=== PATIENT | female | born 1965 | race Caucasian/White ===

== ENCOUNTER 2017-07-06 23:20 | Observation (INO) ==
[2017-07-07] MEDS ORDERED: LACTATED RINGERS 1,000 ML IV STA (00:07)
[2017-07-07] MEDS ORDERED: fentaNYL 100 MCG/2 ML VIAL IV STA (00:07)
[2017-07-07] MEDS ORDERED: DIPHTHERIA/TETANUS ADULT VACCINE 0.5 ML VIAL IM ONE (00:07)
[2017-07-07 00:30] LABS: INR 0.9; Partial Thromboplastin Time 25.7 SECS (0-40)
[2017-07-07 00:43] LABS: Alanine Aminotransferase 39 U/L (13-56); Albumin 3.2 G/DL (3.4-5.0); Alkaline Phosphatase 114 U/L (45-117); Aspartate Amino Transferase 86 U/L (0-37); Bilirubin,Total < 0.39 MG/DL (0.2-1.0); Blood Urea Nitrogen 23 MG/DL (7-18); Calcium 8.9 MG/DL (8.5-10.1); Glucose 217 MG/DL (74-106); Lactic Acid 1.9 MMOL/L (0.4-2.0); Osmolality,Calculated 285.7 MOS/KG (273-304); Sodium 138 MMOL/L (136-145); Total Protein 7.2 G/DL (6.4-8.3)
[2017-07-07 00:45] LABS: Basophils # 0.1 10*3/uL (0.0-0.2); Basophils % 0.2 % (0.0-0.8); Eosinophils % 0.1 % (0.00-10.9); Hematocrit 40.8 VOL% (35.7-47.0); Hemoglobin 13.4 GM/DL (12.0-16.0); Immature Granulocytes % 1.1 %; Immature Granulocytes Absolute 0.26 #; Lymphocytes # 1.5 10*3/uL (1.4-4.0); Lymphocytes % 6.1 % (21.3-54.2); Mean Corpuscular HGB Conc 32.8 GM/DL (32-36); Mean Corpuscular Hemoglobin 31 PG (27-34); Mean Corpuscular Volume 93.8 FL (87-102); Mean Platelet Volume 10.6 FL (9.6-12.0); Monocytes # 0.8 10*3/uL (0.11-0.8); Monocytes % 3.4 % (1.7-12.7); Neutrophils # 21.5 10*3/uL (1.4-7.4); Neutrophils % 89.1 % (38.7-73.9); Platelet Count 356 T/CUMM (130-400); Red Blood Count 4.35 MC/CUMM (3.8-5.5); Red Cell Distribution Width 13.6 % (9.3-17.3); White Blood Count 24.1 T/CUMM (4-12)
[2017-07-07 01:16] LABS: Band Neutrophils 5 % (0-10); Lymphocytes 4 % (20-55); Segmented Neutrophils 89 % (50-85)
[2017-07-07 01:17] LABS: Total Cells Counted 100
[2017-07-07 01:18] LABS: Platelet Estimate Normal
[2017-07-07] MEDS ORDERED: ONDANSETRON 4 MG/2 ML VIAL IV PRN (03:07)
[2017-07-07] MEDS ORDERED: ACETAMINOPHEN 325 MG TABLET PO PRN (03:07)
[2017-07-07] MEDS: LACTATED RINGERS 1,000 ML IV SCH ×2 (07:56→15:58)
[2017-07-07] MEDS: POTASSIUM CHLORIDE RIDER 10 MEQ in PREMIX 1 EACH IV SCH ×2 (07:56→09:51)
[2017-07-07 07:58] LABS: Basophils % 0.1 % (0.0-0.8); Hemoglobin 12.4 GM/DL (12.0-16.0); Immature Granulocytes % 0.5 %; Immature Granulocytes Absolute 0.08 #; Lymphocytes # 1.5 10*3/uL (1.4-4.0); Lymphocytes % 9.9 % (21.3-54.2); Mean Corpuscular HGB Conc 32.6 GM/DL (32-36); Mean Corpuscular Hemoglobin 30 PG (27-34); Mean Corpuscular Volume 92.7 FL (87-102); Mean Platelet Volume 10.1 FL (9.6-12.0); Monocytes # 0.6 10*3/uL (0.11-0.8); Neutrophils # 12.5 10*3/uL (1.4-7.4); Neutrophils % 85.5 % (38.7-73.9); Platelet Count 320 T/CUMM (130-400); Red Cell Distribution Width 13.5 % (9.3-17.3); White Blood Count 14.7 T/CUMM (4-12)
[2017-07-07 08:23] LABS: Calcium 8.5 MG/DL (8.5-10.1); Osmolality,Calculated 280.5 MOS/KG (273-304); Potassium 3.7 MMOL/L (3.5-5.1)
[2017-07-07 08:54] LABS: Amorphous Crystals,Urine Occasional /HPF (Few); Apearance,Urine CLEAR (Clear); Bacteria,Urine Occasional /HPF (Few); Bilirubin,Urine Negative (Negative); Blood, Urine Moderate mg/dL (Negative); Glucose,Urine (UA) Negative (Negative); Ketones,Urine Negative (Negative); Mucus,Urine Occasional /LPF (Occasional); Nitrite,Urine Negative (Negative); Protein,Urine Negative; RBC,Urine 1 /HPF (0-4); Squamous Epithelial Cell,Urine Occasional /HPF (0-10); Urine Color Straw (Yellow); Urine Specific Gravity 1.025 (1.001-1.035); Urine Urobilinogen < 2.0 EU/DL (0.2-1.0); WBC,Urine 1 /HPF (0-6)
[2017-07-07 09:04] LABS: Band Neutrophils 22 % (0-10); Lymphocytes 11 % (20-55); Segmented Neutrophils 64 % (50-85); Total Cells Counted 100
[2017-07-07 09:05] LABS: Anisocytosis 1+; Atypical Lymphocytes Few; Macrocytosis Slight; Platelet Estimate Normal
[2017-07-07 09:14] LABS: Barbiturates Screen,Urine Negative (Negative); Benzodiazepines Screen,Urine Negative (Negative); Cannabinoid Screen,Urine Negative (Negative); Opiate Screen,Urine Positive (Negative); Phencyclidine Screen,Urine Negative (Negative)
[2017-07-07] MEDS: GABAPENTIN 100 MG CAPSULE PO SCH ×2 (15:05→21:15)
[2017-07-07] MEDS: KETOROLAC 30 MG/1 ML VIAL IV SCH ×2 (15:05→21:15)
[2017-07-08] MEDS: LACTATED RINGERS 1,000 ML IV SCH ×2 (03:02→08:30)
[2017-07-08] MEDS: KETOROLAC 30 MG/1 ML VIAL IV SCH ×2 (04:05→08:30)
[2017-07-08 06:59] LABS: Basophils % 0.4 % (0.0-0.8); Eosinophils # 0.2 10*3/uL (0.0-0.87); Eosinophils % 1.5 % (0.00-10.9); Hematocrit 36.5 VOL% (35.7-47.0); Hemoglobin 11.6 GM/DL (12.0-16.0); Immature Granulocytes % 0.5 %; Immature Granulocytes Absolute 0.05 #; Lymphocytes # 1.6 10*3/uL (1.4-4.0); Lymphocytes % 16.3 % (21.3-54.2); Mean Corpuscular HGB Conc 31.8 GM/DL (32-36); Mean Corpuscular Hemoglobin 30 PG (27-34); Mean Corpuscular Volume 93.4 FL (87-102); Mean Platelet Volume 10.8 FL (9.6-12.0); Monocytes # 0.6 10*3/uL (0.11-0.8); Monocytes % 6.2 % (1.7-12.7); Neutrophils # 7.5 10*3/uL (1.4-7.4); Neutrophils % 75.1 % (38.7-73.9); Platelet Count 274 T/CUMM (130-400); Red Blood Count 3.91 MC/CUMM (3.8-5.5); Red Cell Distribution Width 13.8 % (9.3-17.3)
[2017-07-08 07:26] LABS: Calcium 8.5 MG/DL (8.5-10.1); Potassium 3.1 MMOL/L (3.5-5.1)
[2017-07-08] MEDS: GABAPENTIN 100 MG CAPSULE PO SCH (08:30)
[2017-07-08 12:37] VITALS: BP 142/81
== END 2017-07-08 13:00 | disposition home or self-care (01) ==
LOC: N.ED 23:20 → N.EDINP 23:20 → N.TELEN 07-07 02:14 → N.3E 07-07 22:19
PROVIDERS: ADMIT Surgery; ATTEND Surgery